=== PATIENT | male | born 1950 | race Caucasian/White ===

== ENCOUNTER 2018-08-02 15:23 | Inpatient (IN) | payer MEDICARE ==
[~2018-08-02] VITALS: Ht 175.3 cm; Wt 82.3 kg
--- NOTE | 2018-08-02 16:13 | NUR ---
Pt presents to ED with no complaint of cp/pressure. Pt states that he was just seen at Dr. Chua office and was explaining to him how often he has been needing to use his NTG and that he missed an angiogram [address] Da Silva advised to come to the ED for an angiogram tomorrow.
--- NOTE | 2018-08-02 16:25 | NUR ---
PIV started, labs drawn. Repeat EKG done. XR at bedside.
[2018-08-02] MEDS ORDERED: NITROGLYCERIN SINGLE TAB 0.4 MG SL PRN (16:30)
[2018-08-02] MEDS ORDERED: MORPHINE SULFATE 4 MG/ML, 1ML IVPush PRN (16:30)
[2018-08-02 16:42] LABS: ALBUMIN 4.2 g/dL (3.4-5.0); ANION GAP 4 mmol/L (5-15); CALCIUM 9.4 mg/dL (8.5-10.1); CHLORIDE 104 mmol/L (98-107); CREATININE 0.82 mg/dL (0.7-1.3)
[2018-08-02 16:46] LABS: TROPONIN I < 0.015 ng/mL (0.000-0.045)
[2018-08-02 16:56] LABS: BASOPHILS # (AUTO) 0.02 x10^3/uL (0-0.1); BASOPHILS % (AUTO) 0 % (0-1); EOSINOPHILS # (AUTO) 0.08 x10^3/uL (0-0.4); EOSINOPHILS % (AUTO) 1 % (1-7); LYMPHOCYTES # (AUTO) 1.19 x10^3/uL (1-3.4); LYMPHOCYTES % (AUTO) 21 % (22-44); MD SCAN; MEAN CORPUSCULAR HEMOGLOBIN 30.3 pg (27.5-34.5); MEAN CORPUSCULAR HGB CONC 33.5 g/dL (33.2-36.2); MEAN CORPUSCULAR VOLUME 90.3 fL (81-97); MEAN PLATELET VOLUME 11.1 fL (7.4-10.4); MONOCYTES % (AUTO) 7 % (2-9); NEUTROPHILS # (AUTO) 4.14 x10^3/uL (1.8-6.8); NEUTROPHILS % (AUTO) 71 % (42-75); PLATELET COUNT 91 x10^3/uL (130-400); RED BLOOD COUNT 5.31 x10^6/uL (4.38-5.82); RED CELL DISTRIBUTION WIDTH 13.6 % (9.4-14.8)
[2018-08-02] MEDS ORDERED: NITR0.4T28 SL (17:07)
[2018-08-02] MEDS ORDERED: ASPI-515 PO (17:07)
[2018-08-02] MEDS ORDERED: ISOS40TA11 PO (17:07)
[2018-08-02] MEDS ORDERED: CARV6.252 PO (17:07)
--- NOTE | 2018-08-02 17:15 | NUR ---
Pt ambulated to bathroom, no assistance required. Pt back to room and replaced on all monitors, NSR noted, VSS. Pt denies any cp with ambulating to the bathroom.
--- NOTE | 2018-08-02 17:45 | NUR ---
Dr. Rock at bedside to evaluate pt for admission.
[2018-08-02] MEDS ORDERED: SODIUM CHLORIDE 0.9% 1,000 ML IV SCH (17:47)
[2018-08-02] MEDS ORDERED: ACETAMINOPHEN 325 MG TABLET PO PRN (18:00)
[2018-08-02] MEDS ORDERED: NITROGLYCERIN 0.4 MG BOTTLE (25 TABS) SL PRN (18:00)
[2018-08-02] MEDS ORDERED: ONDANSETRON 2MG/ML, 2ML IVPush PRN (18:00)
[2018-08-02] MEDS ORDERED: HEPARIN 5,000 UNITS/ML, 1ML SQ SCH (18:00)
[2018-08-02] MEDS ORDERED: hydrALAzine 20 MG/ML, 1ML IVPush PRN (18:00)
[2018-08-02] MEDS ORDERED: ASPIRIN 81 MG TABLET CHEW PO ONE (18:00)
[2018-08-02] MEDS ORDERED: morphine SULFATE 10 MG/ML, 1ML IVPush PRN (18:00)
[2018-08-02 18:22] LABS: INTERNATIONAL NORMALIZED RATIO 1.01 (0.93-1.1); PROTHROMBIN TIME 10.7 Seconds (9.6-11.5)
[2018-08-02] MEDS ORDERED: HEPARIN 5,000 UNITS/ML, 1ML ONE (18:30)
[2018-08-02] MEDS ORDERED: ASPIRIN 81 MG TABLET CHEW ONE (18:30)
[2018-08-02] MEDS ORDERED: HEPARIN 25,000 UNITS/500ML PMX 500 ML IV PRN ×3 (18:30→22:10)
--- NOTE | 2018-08-02 18:34 | NUR ---
Pt medicated per MAR.
[2018-08-02 18:54] LABS: HEMOGLOBIN A1C 7.9 % (4.2-6.3)
--- NOTE | 2018-08-02 18:55 | NUR ---
Lab at bedside for trop redraw.
[2018-08-02 19:20] LABS: TROPONIN I < 0.015 ng/mL (0.000-0.045)
--- NOTE | 2018-08-02 19:22 | NUR ---
SBAR report called to Carlos SHAIKH. Pt made aware of new room assignment.
[2018-08-02 19:44] VITALS: BP 162/82
[2018-08-02 19:51] VITALS: BP 162/82
[2018-08-02] MEDS ORDERED: HEPARIN 5,000 UNITS/ML, 1ML IV PRN (20:00)
[2018-08-02] MEDS ORDERED: HEPARIN 5,000 UNITS/ML, 1ML IV ONE (20:30)
[2018-08-02] MEDS ORDERED: ISOSORBIDE DINITRATE 30 MG TABLET ONE (21:01)
[2018-08-02] MEDS: ATORVASTATIN 80 MG TABLET PO SCH (21:22)
[2018-08-02] MEDS: CARVEDILOL 6.25 MG TABLET PO SCH (21:23)
[2018-08-02] MEDS: ISOSORBIDE DINITRATE 20 MG TABLET PO SCH (21:23)
[2018-08-02] MEDS: NICOTINE 7 MG/24 HR PATCH.TD24 TD SCH (21:31)
[2018-08-03 00:35] VITALS: BP 109/57
[2018-08-03 01:17] LABS: TROPONIN I 0.016 ng/mL (0.000-0.045)
[2018-08-03 03:44] LABS: ALANINE AMINOTRANSFERASE 27 U/L (12-78); ALBUMIN 3.3 g/dL (3.4-5.0); ANION GAP 7 mmol/L (5-15); CALCIUM 8.6 mg/dL (8.5-10.1); CHLORIDE 107 mmol/L (98-107); CREATININE 0.82 mg/dL (0.7-1.3)
[2018-08-03 03:46] LABS: MEAN CORPUSCULAR HEMOGLOBIN 30.7 pg (27.5-34.5); MEAN CORPUSCULAR HGB CONC 33.8 g/dL (33.2-36.2); MEAN CORPUSCULAR VOLUME 90.7 fL (81-97); MEAN PLATELET VOLUME 10.9 fL (7.4-10.4); PLATELET COUNT 79 x10^3/uL (130-400); RED CELL DISTRIBUTION WIDTH 13.6 % (9.4-14.8)
[2018-08-03] MEDS: HEPARIN 5,000 UNITS/ML, 1ML IV PRN ×2 (03:46→11:54)
[2018-08-03 03:54] LABS: ALKALINE PHOSPHATASE 72 U/L (45-117); BILIRUBIN,TOTAL 0.6 mg/dL (0.2-1.0); THYROID STIMULATING HORMONE 0.593 mIU/L (0.358-3.740); TOTAL PROTEIN 6.7 g/dL (6.4-8.2)
[2018-08-03 04:35] LABS: BASOPHILS # (AUTO) 0.02 x10^3/uL (0-0.1); BASOPHILS % (AUTO) 0 % (0-1); EOSINOPHILS # (AUTO) 0.12 x10^3/uL (0-0.4); EOSINOPHILS % (AUTO) 2 % (1-7); LYMPHOCYTES % (AUTO) 34 % (22-44); MD SCAN; MONOCYTES # (AUTO) 0.62 x10^3/uL (0.2-0.8); MONOCYTES % (AUTO) 10 % (2-9); NEUTROPHILS % (AUTO) 54 % (42-75)
[2018-08-03 07:46] VITALS: BP 122/75
[2018-08-03] MEDS: CARVEDILOL 6.25 MG TABLET PO SCH ×2 (09:20→21:33)
[2018-08-03] MEDS: ISOSORBIDE DINITRATE 20 MG TABLET PO SCH ×2 (09:21→21:33)
[2018-08-03] MEDS: INSULIN LISPRO 100 UNITS/ML, PEN SQ-INSULIN SCH ×3 (12:39→21:00)
[2018-08-03 13:04] VITALS: BP 112/62
[2018-08-03] MEDS ORDERED: LIDOCAINE 1%, 20ML ONE (14:11)
[2018-08-03] MEDS ORDERED: BIVALIRUDIN 250 MG ONE ×2 (14:11→16:45)
[2018-08-03] MEDS ORDERED: MIDAZOLAM 1 MG/ML, 5ML ONE (14:11)
[2018-08-03] MEDS ORDERED: FENTANYL PF 100 MCG/2ML ONE ×2 (14:11→15:35)
[2018-08-03] MEDS ORDERED: TICAGRELOR 90 MG TABLET ONE ×2 (14:11→16:44)
[2018-08-03] MEDS ORDERED: DIPHENHYDRAMINE 50 MG/ML, 1ML ONE (14:25)
[2018-08-03] MEDS ORDERED: VERAPAMIL 2.5 MG/ML, 2ML ONE (16:03)
[2018-08-03] MEDS ORDERED: NITROGLYCERIN 5 MG/ML, 10ML ONE (16:04)
[2018-08-03] MEDS ORDERED: HEPARIN 1,000 UNITS/ML, 10ML ONE (16:04)
[2018-08-03] MEDS ORDERED: MORPHINE SULFATE 4 MG/ML, 1ML ONE (16:16)
[2018-08-03] MEDS ORDERED: BIVALIRUDIN 250 MG in DEXTROSE 5% 100 ML IV SCH (17:28)
[2018-08-03] MEDS ORDERED: FILTER 0.22 MICRON IV PRN (18:00)
[2018-08-03] MEDS ORDERED: SODIUM CHLORIDE 0.9%, 500ML IVBOLUS ONE (18:00)
[2018-08-03] MEDS ORDERED: AMIODARONE 150 MG in DEXTROSE 5% 100 ML IV ONE (18:00)
[2018-08-03] MEDS: SODIUM CHLORIDE 0.9% 1,000 ML IV SCH (18:00)
[2018-08-03] MEDS: AMIODARONE 900 MG in DEXTROSE 5% 482 ML IV PRN (18:25)
[2018-08-03] MEDS: MORPHINE SULFATE 4 MG/ML, 1ML IVPush PRN ×2 (18:38→20:30)
[2018-08-03 20:19] VITALS: BP 117/55
[2018-08-03] MEDS: NICOTINE 7 MG/24 HR PATCH.TD24 TD SCH (21:00)
[2018-08-03] MEDS: ATORVASTATIN 80 MG TABLET PO SCH (21:34)
[2018-08-03] MEDS: TICAGRELOR 90 MG TABLET PO SCH (21:34)
[2018-08-04] MEDS: AMIODARONE 900 MG in DEXTROSE 5% 482 ML IV PRN (00:26)
[2018-08-04 00:39] VITALS: BP 95/56
[2018-08-04] MEDS: SODIUM CHLORIDE 0.9% 1,000 ML IV SCH (00:45)
[2018-08-04] MEDS: CALCIUM CARBONATE 500 MG TAB.CHEW PO PRN ×2 (03:15→05:07)
[2018-08-04 05:40] LABS: MEAN CORPUSCULAR HEMOGLOBIN 31.1 pg (27.5-34.5); MEAN CORPUSCULAR HGB CONC 34.7 g/dL (33.2-36.2); MEAN CORPUSCULAR VOLUME 89.7 fL (81-97); MEAN PLATELET VOLUME 10.9 fL (7.4-10.4); PLATELET COUNT 76 x10^3/uL (130-400); RED BLOOD COUNT 4.55 x10^6/uL (4.38-5.82); RED CELL DISTRIBUTION WIDTH 13.6 % (9.4-14.8)
[2018-08-04 05:48] LABS: CHLORIDE 110 mmol/L (98-107)
[2018-08-04 06:08] LABS: BASOPHILS # (AUTO) 0.02 x10^3/uL (0-0.1); BASOPHILS % (AUTO) 0 % (0-1); EOSINOPHILS # (AUTO) 0.17 x10^3/uL (0-0.4); EOSINOPHILS % (AUTO) 2 % (1-7); LYMPHOCYTES # (AUTO) 1.33 x10^3/uL (1-3.4); LYMPHOCYTES % (AUTO) 17 % (22-44); MD SCAN; MONOCYTES % (AUTO) 8 % (2-9); NEUTROPHILS # (AUTO) 5.55 x10^3/uL (1.8-6.8); NEUTROPHILS % (AUTO) 72 % (42-75)
[2018-08-04 06:24] LABS: ALANINE AMINOTRANSFERASE 30 U/L (12-78); ALBUMIN 3.4 g/dL (3.4-5.0); ALKALINE PHOSPHATASE 71 U/L (45-117); ANION GAP 7 mmol/L (5-15); BILIRUBIN,TOTAL 1.2 mg/dL (0.2-1.0); CALCIUM 8.5 mg/dL (8.5-10.1); CREATININE 0.73 mg/dL (0.7-1.3); TOTAL PROTEIN 6.8 g/dL (6.4-8.2)
[2018-08-04 06:39] VITALS: BP 111/53
[2018-08-04] MEDS: TICAGRELOR 90 MG TABLET PO SCH ×2 (07:54→20:48)
[2018-08-04] MEDS: CARVEDILOL 6.25 MG TABLET PO SCH ×2 (07:54→20:48)
[2018-08-04] MEDS: ASPIRIN 81 MG TABLET EC PO SCH (07:54)
[2018-08-04] MEDS: INSULIN LISPRO 100 UNITS/ML, PEN SQ-INSULIN SCH ×4 (07:54→20:48)
[2018-08-04] MEDS: ISOSORBIDE MONONITRATE ER 60 MG TABLET PO SCH (08:09)
[2018-08-04] MEDS: AMIODARONE 200 MG TABLET PO SCH ×2 (11:45→20:47)
[2018-08-04 13:21] VITALS: BP 112/65
[2018-08-04 19:18] VITALS: BP 126/68
[2018-08-04] MEDS: NICOTINE 7 MG/24 HR PATCH.TD24 TD SCH (20:23)
[2018-08-04] MEDS: ATORVASTATIN 80 MG TABLET PO SCH (20:48)
[2018-08-05 01:03] VITALS: BP 115/60
[2018-08-05 05:44] LABS: MEAN CORPUSCULAR HEMOGLOBIN 31.2 pg (27.5-34.5); MEAN CORPUSCULAR HGB CONC 34.4 g/dL (33.2-36.2); MEAN CORPUSCULAR VOLUME 90.8 fL (81-97); MEAN PLATELET VOLUME 11.7 fL (7.4-10.4); PLATELET COUNT 77 x10^3/uL (130-400); RED BLOOD COUNT 4.74 x10^6/uL (4.38-5.82); RED CELL DISTRIBUTION WIDTH 13.6 % (9.4-14.8)
[2018-08-05 05:57] LABS: CHLORIDE 108 mmol/L (98-107)
[2018-08-05 06:16] LABS: BASOPHILS # (AUTO) 0.01 x10^3/uL (0-0.1); BASOPHILS % (AUTO) 0 % (0-1); EOSINOPHILS # (AUTO) 0.19 x10^3/uL (0-0.4); EOSINOPHILS % (AUTO) 2 % (1-7); LYMPHOCYTES # (AUTO) 1.57 x10^3/uL (1-3.4); LYMPHOCYTES % (AUTO) 19 % (22-44); MD SCAN; MONOCYTES # (AUTO) 0.76 x10^3/uL (0.2-0.8); MONOCYTES % (AUTO) 9 % (2-9); NEUTROPHILS # (AUTO) 5.82 x10^3/uL (1.8-6.8); NEUTROPHILS % (AUTO) 70 % (42-75)
[2018-08-05 06:38] LABS: ALANINE AMINOTRANSFERASE 31 U/L (12-78); ALBUMIN 3.7 g/dL (3.4-5.0); ALKALINE PHOSPHATASE 71 U/L (45-117); ANION GAP 10 mmol/L (5-15); BILIRUBIN,TOTAL 1.1 mg/dL (0.2-1.0); CALCIUM 8.8 mg/dL (8.5-10.1); CREATININE 0.77 mg/dL (0.7-1.3); TOTAL PROTEIN 7.4 g/dL (6.4-8.2)
[2018-08-05 07:33] VITALS: BP 131/63
[2018-08-05] MEDS: ISOSORBIDE MONONITRATE ER 60 MG TABLET PO SCH (09:13)
[2018-08-05] MEDS: INSULIN LISPRO 100 UNITS/ML, PEN SQ-INSULIN SCH ×4 (09:13→20:46)
[2018-08-05] MEDS: AMIODARONE 200 MG TABLET PO SCH ×2 (09:14→20:42)
[2018-08-05] MEDS: TICAGRELOR 90 MG TABLET PO SCH ×2 (09:16→20:44)
[2018-08-05] MEDS: ASPIRIN 81 MG TABLET EC PO SCH (09:16)
[2018-08-05] MEDS: CARVEDILOL 6.25 MG TABLET PO SCH ×2 (09:17→20:44)
[2018-08-05] MEDS: LISINOPRIL 5 MG TABLET PO SCH (11:35)
[2018-08-05 14:03] VITALS: BP 104/58
[2018-08-05] MEDS: NICOTINE 7 MG/24 HR PATCH.TD24 TD SCH (19:29)
[2018-08-05] MEDS: ATORVASTATIN 80 MG TABLET PO SCH (20:42)
[2018-08-05 20:45] VITALS: BP 135/76
[2018-08-06 01:35] VITALS: BP 125/78
[2018-08-06 05:41] LABS: MEAN CORPUSCULAR HEMOGLOBIN 30.4 pg (27.5-34.5); MEAN CORPUSCULAR HGB CONC 33.4 g/dL (33.2-36.2); MEAN CORPUSCULAR VOLUME 90.9 fL (81-97); MEAN PLATELET VOLUME 11.5 fL (7.4-10.4); PLATELET COUNT 89 x10^3/uL (130-400); RED CELL DISTRIBUTION WIDTH 13.7 % (9.4-14.8)
[2018-08-06 05:48] LABS: ALBUMIN 3.9 g/dL (3.4-5.0); ANION GAP 6 mmol/L (5-15); CALCIUM 8.9 mg/dL (8.5-10.1); CHLORIDE 107 mmol/L (98-107)
[2018-08-06 06:01] LABS: ALANINE AMINOTRANSFERASE 35 U/L (12-78); ALKALINE PHOSPHATASE 75 U/L (45-117); BILIRUBIN,TOTAL 1.2 mg/dL (0.2-1.0); CREATININE 0.81 mg/dL (0.7-1.3); TOTAL PROTEIN 7.7 g/dL (6.4-8.2)
[2018-08-06 06:02] LABS: BASOPHILS # (AUTO) 0.01 x10^3/uL (0-0.1); BASOPHILS % (AUTO) 0 % (0-1); EOSINOPHILS # (AUTO) 0.22 x10^3/uL (0-0.4); EOSINOPHILS % (AUTO) 2 % (1-7); LYMPHOCYTES # (AUTO) 1.48 x10^3/uL (1-3.4); LYMPHOCYTES % (AUTO) 15 % (22-44); MD SCAN; MONOCYTES # (AUTO) 0.87 x10^3/uL (0.2-0.8); MONOCYTES % (AUTO) 9 % (2-9); NEUTROPHILS # (AUTO) 7.21 x10^3/uL (1.8-6.8); NEUTROPHILS % (AUTO) 74 % (42-75)
[2018-08-06 06:53] VITALS: BP 116/70
[2018-08-06] MEDS: INSULIN LISPRO 100 UNITS/ML, PEN SQ-INSULIN SCH ×2 (07:41→11:57)
[2018-08-06] MEDS: TICAGRELOR 90 MG TABLET PO SCH (07:42)
[2018-08-06] MEDS: AMIODARONE 200 MG TABLET PO SCH (07:42)
[2018-08-06] MEDS: ISOSORBIDE MONONITRATE ER 60 MG TABLET PO SCH (07:43)
[2018-08-06] MEDS: ASPIRIN 81 MG TABLET EC PO SCH (07:43)
[2018-08-06] MEDS: CARVEDILOL 6.25 MG TABLET PO SCH (07:43)
[2018-08-06] MEDS ORDERED: LISI5TAB7 PO (11:00)
[2018-08-06] MEDS ORDERED: AMIO200T42 PO (11:00)
[2018-08-06] MEDS ORDERED: ATOR-2 PO (11:00)
[2018-08-06] MEDS ORDERED: ISOS60TA36 PO (11:00)
[2018-08-06] MEDS ORDERED: TICA90TA PO (11:00)
[2018-08-06] MEDS: LISINOPRIL 5 MG TABLET PO SCH (11:56)
[2018-08-07] MEDS ORDERED: AMIODARONE 200 MG TABLET PO SCH (09:00)
== END 2018-08-06 12:20 | disposition home or self-care (01) | DRG 246 ==
LOC: ED 17:11 → EDIP 17:47 → 5SO 19:36 → DCLOUNGE 08-06 11:58
PROVIDERS: ADMIT Internal Medicine; ATTEND Internal Medicine
PROC: 027034Z Dilation of Coronary Artery, One Artery with Drug-eluting Intraluminal Device, Percutaneous Approach (ICD-10-PCS; principal; 2018-08-03)
PROC: 02C03ZZ Extirpation of Matter from Coronary Artery, One Artery, Percutaneous Approach (ICD-10-PCS; 2018-08-03)
PROC: 4A023N7 Measurement of Cardiac Sampling and Pressure, Left Heart, Percutaneous Approach (ICD-10-PCS; 2018-08-03)
PROC: B2111ZZ Fluoroscopy of Multiple Coronary Arteries using Low Osmolar Contrast (ICD-10-PCS; 2018-08-03)
PROC: B2181ZZ Fluoroscopy of Left Internal Mammary Bypass Graft using Low Osmolar Contrast (ICD-10-PCS; 2018-08-03)
PROC: B2121ZZ Fluoroscopy of Single Coronary Artery Bypass Graft using Low Osmolar Contrast (ICD-10-PCS; 2018-08-03)
DX: I25.110 Atherosclerotic heart disease of native coronary artery with unstable angina pectoris (principal); I50.43 Acute on chronic combined systolic (congestive) and diastolic (congestive) heart failure; E87.1 Hypo-osmolality and hyponatremia; D68.69 Other thrombophilia; I25.719 Atherosclerosis of autologous vein coronary artery bypass graft(s) with unspecified angina pectoris; D69.6 Thrombocytopenia, unspecified; I25.5 Ischemic cardiomyopathy; E11.51 Type 2 diabetes mellitus with diabetic peripheral angiopathy without gangrene; E11.65 Type 2 diabetes mellitus with hyperglycemia; E78.5 Hyperlipidemia, unspecified; F17.200 Nicotine dependence, unspecified, uncomplicated; I48.0 Paroxysmal atrial fibrillation; M54.9 Dorsalgia, unspecified; G89.29 Other chronic pain; I10 Essential (primary) hypertension; I25.2 Old myocardial infarction; Z88.6 Allergy status to analgesic agent; Z79.82 Long term (current) use of aspirin; Z82.49 Family history of ischemic heart disease and other diseases of the circulatory system; Z87.442 Personal history of urinary calculi; I25.82 Chronic total occlusion of coronary artery; I11.0 Hypertensive heart disease with heart failure
CPT/HCPCS: 36415; 71045; 80048; 80053; 82040; 82962; 83036; 83735; 83880; 84100; 84439; 84443; 84484; 85025; 85520; 85610; 85730; 92925; 93005; 93306; 93459; 96372; 99156; 99157; 99285; C1760; C1769; C1894; C9600; G0378; J0583; J1644; J2250; J3010; J3490; C1724; C1725; C1874; C1887; J0282; J1200; J1815; J7040; J7060; Q9967

== ENCOUNTER 2018-11-01 09:49 | Inpatient (IN) | payer MEDICARE ==
[~2018-11-01] VITALS: Ht 175.3 cm; Wt 88.6 kg
[~2018-11-01 09:49] MED LIST: AMIO200T42 PO; ASPI-515 PO; ATOR-2 PO; CARV6.252 PO; ISOS40TA11 PO; ISOS60TA36 PO; LISI5TAB7 PO; NITR0.4T28 SL; TICA90TA PO
[2018-11-01 10:26] VITALS: BP 141/75
[2018-11-01] MEDS ORDERED: PRAS10TA4 PO (10:45)
[2018-11-01] MEDS ORDERED: FENTANYL PF 100 MCG/2ML ONE ×2 (11:27→13:09)
[2018-11-01] MEDS ORDERED: NITROGLYCERIN 5 MG/ML, 10ML ONE (11:28)
[2018-11-01] MEDS ORDERED: BIVALIRUDIN 250 MG ONE ×2 (11:28→12:58)
[2018-11-01] MEDS ORDERED: LIDOCAINE-MPF 1%, 5ML ONE (11:28)
[2018-11-01] MEDS ORDERED: VERAPAMIL 2.5 MG/ML, 2ML ONE (11:28)
[2018-11-01] MEDS ORDERED: HEPARIN 1,000 UNITS/ML, 10ML ONE (11:28)
[2018-11-01] MEDS ORDERED: PRASUGREL 10 MG TABLET ONE (11:28)
[2018-11-01] MEDS ORDERED: MIDAZOLAM 1 MG/ML, 5ML ONE (11:28)
[2018-11-01] MEDS ORDERED: LIDOCAINE 1%, 20ML ONE (12:07)
[2018-11-01] MEDS ORDERED: SODIUM CHLORIDE 0.9% 1,000 ML IV SCH (13:31)
[2018-11-01] MEDS ORDERED: BIVALIRUDIN 250 MG in SODIUM CHLORIDE 0.9% 50 ML IV SCH (13:31)
[2018-11-01] MEDS ORDERED: ONDANSETRON 2MG/ML, 2ML IVPush PRN (14:00)
[2018-11-01] MEDS ORDERED: ACETAMINOPHEN 325 MG TABLET PO PRN (14:00)
[2018-11-01] MEDS ORDERED: MORPHINE SULFATE 4 MG/ML, 1ML IVPush PRN (14:00)
[2018-11-01] MEDS ORDERED: ZOLPIDEM 5MG TABLET PO PRN (14:00)
[2018-11-01] MEDS ORDERED: NITROGLYCERIN 0.4 MG BOTTLE (25 TABS) SL PRN (14:00)
[2018-11-01] MEDS: HYDROcodone/APAP 10/325 MG TABLET PO PRN (14:03)
[2018-11-01 14:33] VITALS: BP 114/67
[2018-11-01 19:17] VITALS: BP 128/73
[2018-11-01 19:54] LABS: TROPONIN I 0.017 ng/mL (0.000-0.045)
[2018-11-01] MEDS: CARVEDILOL 6.25 MG TABLET PO SCH (21:11)
[2018-11-01] MEDS: ATORVASTATIN 80 MG TABLET PO SCH (21:13)
[2018-11-01] MEDS: ASPIRIN 81 MG TABLET EC PO SCH (21:13)
[2018-11-02 00:10] VITALS: BP 118/69
[2018-11-02] MEDS: HYDROcodone/APAP 10/325 MG TABLET PO PRN (00:11)
[2018-11-02 06:06] LABS: CHLORIDE 106 mmol/L (98-107)
[2018-11-02 06:11] LABS: ANION GAP 5 mmol/L (5-15); CALCIUM 8.8 mg/dL (8.5-10.1)
[2018-11-02 08:06] VITALS: BP 117/67
[2018-11-02] MEDS ORDERED: LISINOPRIL 5 MG TABLET PO SCH (09:00)
[2018-11-02] MEDS ORDERED: ISOSORBIDE MONONITRATE ER 60 MG TABLET PO SCH (09:00)
[2018-11-02] MEDS ORDERED: PRASUGREL 10 MG TABLET PO SCH (09:00)
[2018-11-02] MEDS: CARVEDILOL 6.25 MG TABLET PO SCH (10:20)
[2018-11-02] MEDS: ATORVASTATIN 80 MG TABLET PO SCH (10:27)
[2018-11-02] MEDS: ASPIRIN 81 MG TABLET EC PO SCH (10:27)
== END 2018-11-02 11:25 | disposition home or self-care (01) | DRG 246 ==
LOC: CACL 09:49 → 5SO 13:30 → CACL 13:31 → DCLOUNGE 11-02 10:57
PROVIDERS: ADMIT Internal Medicine Cardiovascular Disease; ATTEND Internal Medicine Cardiovascular Disease
PROC: 027135Z Dilation of Coronary Artery, Two Arteries with Two Drug-eluting Intraluminal Devices, Percutaneous Approach (ICD-10-PCS; principal; 2018-11-01)
PROC: 4A023N7 Measurement of Cardiac Sampling and Pressure, Left Heart, Percutaneous Approach (ICD-10-PCS; 2018-11-01)
PROC: B2111ZZ Fluoroscopy of Multiple Coronary Arteries using Low Osmolar Contrast (ICD-10-PCS; 2018-11-01)
PROC: B2181ZZ Fluoroscopy of Left Internal Mammary Bypass Graft using Low Osmolar Contrast (ICD-10-PCS; 2018-11-01)
DX: I25.110 Atherosclerotic heart disease of native coronary artery with unstable angina pectoris (principal); I50.41 Acute combined systolic (congestive) and diastolic (congestive) heart failure; E11.9 Type 2 diabetes mellitus without complications; E78.5 Hyperlipidemia, unspecified; I10 Essential (primary) hypertension; I25.5 Ischemic cardiomyopathy; Z95.1 Presence of aortocoronary bypass graft; Z88.6 Allergy status to analgesic agent
CPT/HCPCS: 36415; 80048; 84484; 85014; 85018; 93005; 93454; 99156; 99157; C1760; C1769; C1894; C9600; G0378; J0583; J1644; J2250; J3010; C1725; C1874; C1887; Q9967